=== PATIENT | female | born 1995 | race Caucasian/White ===

== ENCOUNTER 2016-12-09 14:48 | Emergency (ER) | payer OTHER ==
[~2016-12-09] VITALS: Ht 170.2 cm; Wt 93.2 kg
[~2016-12-09 14:48] MED LIST: CLIN-77 PO; DOXY100C2 PO; HYDR-4003 PO
[2016-12-09 15:09] VITALS: BP 137/96; RESP 18; O2SAT 95
--- NOTE | 2016-12-09 16:51 | ED.REPORT ---
HPI-URI / Cough / Cold Date of Service Dec 09, 2016 ED Provider: Mark Rodriguez PA-C Kaela is an otherwise healthy 21-year-old female with chief complaint of sore throat. Patient reports a three-day history of headache, sore throat, rhinorrhea, cough, tender lymphadenopathy, subjective fever, anorexia and ear fullness. She was seen at the urgent care yesterday and had a negative strep swab. History of asthma and smoking. Denies abdominal pain, diarrhea, vomiting , chest pain, palpitations, shortness of breath. Nursing Notes Stated Complaint: SEVERE SORE THROAT/COUGH Chief Complaint: ENT & Mouth Nursing Notes Reviewed: Yes Allergies: Coded Allergies: Penicillins (Verified Allergy, Unknown, 12/09/16) amoxicillin (Verified Allergy, Unknown, 07/07/16) Scheduled Benzonatate (Benzonatate) 100 Mg Capsule 100 MG PO TID Clindamycin (Clindamycin) 150 Mg Capsule 450 MG PO TID Doxycycline Hyclate (Doxycycline Hyclate) 100 Mg Capsule 100 MG PO BID Scheduled PRN Hydrocodone-Acetaminophen 5-325 mg (Hydrocodone-Acetaminophen 5-325 mg) 1 Each Tablet 1 TABLET PO Q4H PRN PRN For Pain General Time Seen by MD: 16:33 Chief Complaint Sore throat Past Medical History Past Medical History Denies Past Surgical History Denies Smoking History Never Smoker Social History Alcohol Use: Denies alcohol use Drug Use: Denies drug use Occupation single lives with boyfriend and his sister and new baby 11/14/2016 Ambulatory Status Independent Review of Systems Negative unless stated otherwise in history of present illness Physical Exam General: Well-appearing, Well developed, well nourished, no acute distress. Head: Atraumatic, normocephalic. No mastoid tenderness. Eyes: No scleral icterus or injection. No discharge. PERRL. Vision grossly intact. Ears: Pinna and tragus nontender with manipulation. External auditory canal patent, atraumatic and without discharge. Tympanic membrane giordano, shiny and translucent without fluid, bulging, retraction or perforation. Hearing grossly intact. Nose: Symmetrical, nares patent without discharge. No frontal or maxillary sinus tenderness. Mouth/pharynx: normal dentition, mucus membranes moist. Tonsils 2+ and symmetrical, uvula midline. Pharynx pharynx injected, clear exudate, cobblestoning.. Voice clear. Neck: Mild anterior tenderness, no lymphadenopathy appreciated. Trachea midline. Respiratory: Regular rate and rhythm. Breath sounds present, clear to auscultation and equal bilaterally. Cardiovascular: Regular rate and rhythm, without murmur, gallop or rub.a. Skin: Warm and dry. Neurological: Grossly nonfocal. Psychological: alert and oriented. Speech appropriate, linear and logical. Behavior appropriate. Initial Vital Signs Vital Signs (First) Date Time Temp Pulse Resp B/P Pulse Ox O2 Delivery O2 Flow Rate FiO2 12/09/16 15:09 36.3 92 18 137/96 95 Room Air Initial VS: Reviewed, Vital signs normal Re-Eval/Medical Decision Med Decision/Clinical Course This is an otherwise healthy 21-year-old female with history of asthma and smoking who presents with a three-day history of nasal congestion, rhinorrhea, sore throat, cough and subjective fever. Negative strep test yesterday. History and physical is benign really only injected pharynx with clear exudate. I expect this is a viral upper respiratory infection versus strep throat, pneumonia, sinusitis. Recommended symptomatic care and rest, primary care follow-up. Give return precautions Discharge & Departure Impression: Primary Impression: Upper respiratory infection URI type: unspecified viral URI Qualified Code: J06.9 - Acute upper respiratory infection, unspecified Disposition: Home Discharge Condition All VS Reviewed: Yes Condition: Stable Patient Instructions: Upper Respiratory Infection (ED) Additional Instructions: Evaluation for cough and sore throat in the emergency department. History and physical is reassuring that this is unlikely to be a condition such as pneumonia or strep throat that requires antibiotic treatment. I believe that you have a viral upper respiratory infection. Rest, drink small amounts of fluids throughout the day, and eat small amounts of food as tolerated. The treatment is largely symptomatic: I typically recommend a product called Robitussin extra strength nighttime DM for use at night, which did help his sleep and reduce cough. If you are pharmacy does not have this, ask your pharmacist for to recommend an alternative. The pain is best treated with 400 mg of ibuprofen (Advil, Motrin) every 6 hours , or 1000 mg of acetaminophen (Tylenol) every 6 hours. These drugs can be taken at the same time for more severe pain. Sore throat can be treated with Cepacol lozenges. Follow-up with your primary care provider if your symptoms have not significantly improved in a week. Remember that sometimes a cough can take up to a month to completely resolve. Return emergency Department for any new or worsening symptoms including difficulty breathing. Referrals: Venecia Reinoso DO (PCP) EDSupervising Provider for [facility]: Irina Veloz MD, Seth PA-C Dec 09, 2016 16:51
[2016-12-09] MEDS ORDERED: BENZ100C8 PO (16:53)
== END 2016-12-09 17:08 | disposition home or self-care (01) ==
LOC: SED 14:48
DX: J06.9 Acute upper respiratory infection, unspecified (principal); J45.909 Unspecified asthma, uncomplicated; F17.200 Nicotine dependence, unspecified, uncomplicated; Z88.0 Allergy status to penicillin; Z88.1 Allergy status to other antibiotic agents